=== PATIENT | female | born 1995 | race African-American/Black ===

== ENCOUNTER 2022-02-08 10:12 | Emergency (ER) | payer OTHER, SELFPAY ==
[2022-02-08 10:17] VITALS: BP 144/92; PULSE 93; RESP 16; TEMP 36.3; O2SAT 98; BMI 31.7
[2022-02-08] MEDS: Diphth,Pertus(ACell),Tet Adult 0.5 ML SYRINGE IM (11:45)
[2022-02-08] MEDS: Lidocaine HCl 1 % MPF 2 ML VIAL INFILTRATI ×2 (11:45)
--- NOTE | 2022-02-08 12:38 | ED.WOUNDLAC ---
HPI - Wound/Laceration General Chief Complaint: Wound/Laceration Stated Complaint: Cut on hand Time Seen by Provider: 02/08/22 11:33 Source: patient Mode of arrival: ambulatory Limitations: no limitations History of Present Illness HPI narrative: 26-year-old female who is not up-to-date on her tetanus presenting to the ED with laceration to the left palm of her hand that occurred prior to arrival when she was cutting a hard piece of bread with a knife. She reports the knife slipped and she lacerated her palm near the thumb area. She denies thoughts of foreign bodies or any bony tenderness or any other injuries complaints or concerns at this time. Onset (ago): minute(s) (Prior to arrival) Extremity Location: left: hand (Palm) Place: home Patient tetanus UTD: No Context: accidental Associated symptoms: none Treatments prior to arrival: bandage Related Data Allergies Allergy/AdvReac Type Severity Reaction Status Date / Time No Known Allergies Allergy Verified 02/08/22 10:17 Review of Systems Review of Systems: Constitutional : No Fever, No Chills, Cardiovascular : No Chest Pain, No SOB Respiratory : No Dyspnea Gastrointestinal : No abdominal pain Musculoskeletal : No Joint Swelling Skin : positive skin laceration, No Foreign bodies, No rash, No surrounding erythema Neuro : No Weakness, No Numbness/tingling Psych : No SI/HI/thoughts of self injury Yes all other systems are reviewed and are negative [facility] Past Medical History Attestation statement: The following information was validated with the patient. Source: old records reviewed and nursing notes reviewed Social History Social History Advance Directives: No Advance Directives Information Provided: Yes Physical Exam Vital Signs: Vital Signs: Last Vital Signs Temp 97.3 F 02/08/22 10:17 Pulse 93 02/08/22 10:17 Resp 16 02/08/22 10:17 BP 144/92 H 02/08/22 10:17 Pulse Ox 98 02/08/22 10:17 O2 Del Method 02/08/22 10:17 BMI result Body Mass Index 31.7 vital signs have been reviewed as normal and appeared to be correct. Blood pressure 144/92 Heart rate normal. Respiration rate normal. Temperature normal. Oxygen saturation normal. Appearance: Alert. Oriented X3. No acute distress. Head: Normal external exam. Normocephalic. Atraumatic. Eyes: PERRLA. EOMI. Conjunctiva and sclera normal. Eyelids normal. ENT: Pharynx normal. Uvula midline. Moist mucous membranes. Neck: Normal inspection. Neck supple. FROM. CVS: Normal heart rate and rhythm. Respiratory: No respiratory distress. Painless inspiration. Skin: Skin warm and dry. Normal skin color. Normal skin turgor. To left palm near the or base of the thumb patient has a 1 cm intermediate linear laceration. No foreign bodies or active bleeding or bony tenderness or obvious ligamentous or tendon injury noted. No additional rashes/lesions/lacerations noted. Extremities: Extremities exhibit normal range of motion. Extremities nontender. Neuro: Oriented X 3. No motor deficit. No sensory deficit. Reflexes normal. Normal steady gait. No focal neuro deficits noted. Vascular: + radial pulses/+ 2 distal pedal pulses/+2 dorsalis pedis b/l. Normal cap refill. No cyanosis noted to upper extremity nails and lower extremity toes nails. Course Course Course Narrative: Patient now status post laceration repair with 4 simple interrupted stitches.. Tetanus updated. No imaging indicated at this time. Will DC home with symptomatic treatment with instructions to return in 10-14 days for suture removal and to follow up prior if signs of infection. Patient understands agrees the plan. Medications Administered Discontinued Medications Generic Name Dose Route Start Last Admin Trade Name Freq PRN Reason Stop Dose Admin Diphtheria/Tetanus/Acell Pertussis 0.5 ml 02/08/22 11:36 02/08/22 11:45 Diphth,Pertus(Acell),Tet Adult 0.5 Ml Syringe IM 02/08/22 11:37 0.5 ml .ONCE ONE Administration Lidocaine HCl 2 ml 02/08/22 11:36 02/08/22 11:45 Lidocaine Hcl 1 % Mpf 2 Ml Vial INFILTRATI 02/08/22 11:37 2 ml ONCE ONE Administration Lidocaine HCl 2 ml 02/08/22 11:36 02/08/22 11:45 Lidocaine Hcl 1 % Mpf 2 Ml Vial INFILTRATI 02/08/22 11:37 2 ml ONCE ONE Administration MDM - Wound/Laceration Medical Records Attestation: I reviewed the patient's medical records. Procedures Laceration Laceration 1: Site: hand Side (If applicable): left Size (cm): 1 Description: linear Depth: simple, single layer Local Anesthetic: lidocaine 1% Amount of anesthesia used (mL): 4 Pre-repair: wound explored, irrigated extensively and deep structures intact Skin layer closed with: nylon Size (cm): 4-0 Number of sutures: 4 Technique: simple, interrupted Discharge Plan Discharge Clinical Impression: Laceration Patient Disposition: Home, Self-Care Instructions: Laceration (ED) Referrals: Alma Tatum PA [Emergency Midlevel Provider] - 10 days (in 10 days for suture removal)
[2022-02-08] MEDS: Bacitracin Oint 0.9 GM PACKET 1 APPL TOPICAL (12:49)
== END 2022-02-08 12:55 | disposition home or self-care (01) ==
PROVIDERS: Emergency Provider Emergency Medicine
DX: S61.412A Laceration without foreign body of left hand, initial encounter (principal); W26.0XXA Contact with knife, initial encounter; Y93.G1 Activity, food preparation and clean up; Y92.030 Kitchen in apartment as the place of occurrence of the external cause; Y99.9 Unspecified external cause status
CPT/HCPCS: 12041; 90471; 90715; 99282; 99284

== ENCOUNTER 2023-02-17 14:29 | Outpatient (REF) | payer OTHER, SELFPAY ==
--- NOTE | ~2023-02-17 | US_ITS ---
EXAMINATION: US PELVIS CLINICAL INFORMATION: Pelvic pain, Kyleena IUD inserted 3 weeks ago LMP 02/03/2023 COMPARISON: None available. TECHNIQUE: Ultrasound of the pelvis is performed using both transabdominal and transvaginal transducers along with Doppler. Transvaginal imaging is performed due to inadequate visualization transabdominally. FINDINGS: Uterus: The uterus is anteverted and measures 8.0 x 3.2 x 4.7 cm. No focal fibroid. The endometrial thickness is 0.2 cm. The IUD appears in proper position. Adnexa: Both ovaries are visualized. There is normal color flow to the adnexa. There is no ovarian torsion. There is a small amount of free fluid within the cul-de-sac. Right ovary measures 2.5 x 1.7 x 2.5 cm. Volume 5.5 mL. Left ovary measures 3.3 x 2.1 x 2.6 cm. Volume 9.0 mL. Question of 2.1 x 1.6 x 2.0 cm complex cystic area in the left ovary. US/US pelvic and transvaginal IMPRESSION: 1. Normal uterus and right ovary. 2. Question of 2.1 cm complex cyst in the left ovary. Follow-up ultrasound in 4-6 weeks after the patient's next menses could be performed. 3. The IUD appears in proper position.
== END 2023-02-17 14:30 | disposition home or self-care (01) ==
LOC: HO.UMASIMG 14:29
PROVIDERS: Visit Provider Nurse Practitioner Women's Health
DX: R10.2 Pelvic and perineal pain (principal)
CPT/HCPCS: 76830; 76856

== ENCOUNTER 2023-04-02 09:47 | Outpatient (REF) | payer OTHER, SELFPAY ==
--- NOTE | ~2023-04-02 | US_ITS ---
EXAMINATION: US PELVIS COMPLETE CLINICAL INFORMATION: Recheck complex left ovarian cyst COMPARISON: Pelvic ultrasound 02/17/2023 TECHNIQUE: Transabdominal and transvaginal imaging was performed. FINDINGS: The uterus is of normal size and echogenicity measuring 7.4 x 3.2 x 4.3 cm. A regular homogeneous endometrium is identified measuring 0.4 cm. The intrauterine device is no longer identified on today's exam. Both ovaries are of normal size and echogenicity. The right measures 3.2 x 1.9 x 1.9 cm for a volume of 6 mL. The left measures 2.2 x 1.7 x 1.9 cm for a volume of 8.7 mL. Resolution of the previously seen left ovarian cyst. There is no pelvic free fluid. US/US pelvic and transvaginal IMPRESSION: 1. Resolution of the previously seen left ovarian cyst. Unremarkable pelvic ultrasound. 2. The intrauterine device is no longer identified on today's exam.
== END 2023-04-02 09:48 | disposition home or self-care (01) ==
LOC: HO.UMASIMG 09:47
PROVIDERS: Visit Provider Nurse Practitioner Women's Health
DX: Z30.432 Encounter for removal of intrauterine contraceptive device (principal); N83.292 Other ovarian cyst, left side
CPT/HCPCS: 76830; 76856